=== PATIENT | female | born 1995 | race Caucasian/White ===

== ENCOUNTER 2017-05-01 05:57 | Inpatient (IN) | payer OTHER ==
[~2017-05-01] VITALS: Ht 149.9 cm; Wt 55.3 kg
[2017-05-01] VITALS (14 sets, daily range): BP systolic 103–133; BP diastolic 58–79
[~2017-05-01 05:57] MED LIST: DEPO-PROVER150 MG/ML IM; FLORASTOR250 MG PO; METRONIDAZOLE500 MG PO
[2017-05-01 06:58] LABS: EOSINOPHIL (%) 0.5 % (0-5); EOSINOPHIL COUNT 0.1 K/uL (0-0.3); IMMATURE GRANULOCYTE COUNT 0.2 K/uL; INSTRUMENT ABS NEUTROPHIL CT 12.2 K/uL; MCH 26.2 PG (29.0-34.0); MCHC 32.3 G/DL (30.0-36.0); MCV 81.2 FL (83-99); MONOCYTE (%) 7.1 % (3-12); MONOCYTE COUNT 1.1 K/uL (0-0.8); NEUTROPHIL (%) 78.4 % (45-76); NEUTROPHIL COUNT 12.2 K/uL (1.8-6.4); PLATELET COUNT 216 K/uL (156-360); RBC DIS.WIDTH-CV 17.6 % (11.8-14.6); RBC DIS.WIDTH-SD 50.6 % (39-53); RED BLOOD COUNT 4.31 M/uL (3.80-5.20); WHITE BLOOD COUNT 15.6 K/uL (4.1-10.2)
[2017-05-01] MEDS ORDERED: PRENATAL TABLE1 EACH PO (07:02)
[2017-05-01] MEDS ORDERED: MOTRIN800 MG PO (08:22)
[2017-05-01] MEDS ORDERED: ZOFRAN4 MG PO (09:34)
[2017-05-02 07:03] VITALS: BP 101/59
[2017-05-02 14:45] VITALS: BP 106/60
== END 2017-05-02 19:42 | disposition home or self-care (01) | DRG 775 ==
LOC: LDRP-OP 05:57 → 2WEST 05:58 → LDRP-OP 05-26 13:30
PROVIDERS: Nurse Practitioner
PROC: 10E0XZZ Delivery of Products of Conception, External Approach (ICD-10-PCS; principal; 2017-05-01)
DX: O80 Encounter for full-term uncomplicated delivery (principal)
CPT/HCPCS: 85025; J1050; J7120